=== PATIENT | male | born 1970 | race Caucasian/White ===

== ENCOUNTER 2024-06-26 14:44 | Observation (INO) ==
[2024-06-26] MEDS ORDERED: ONDANSETRON 4 MG/2 ML VIAL IV PRN (15:01)
[2024-06-26 15:38] LABS: Basophils # (Auto) 0.03 K/mcL (0.00-0.30); Basophils % (Auto) 0.5 % (0.0-2.0); Eosinophils # (Auto) 0.04 K/mcL (0.00-0.70); Eosinophils % (Auto) 0.6 % (0.0-7.0); Hematocrit 50.2 % (40.1-51.0); Hemoglobin 16.4 g/dL (13.7-17.5); Lymphocytes # (Auto) 1.96 K/mcL (1.50-4.80); Lymphocytes % (Auto) 29.8 % (15.5-49.0); Mean Cell Volume 86.6 fL (80.0-100.0); Mean Corpuscular HGB Conc 32.7 g/dL (31.0-36.0); Mean Platelet Volume 9.7 fL (8.8-12.5); Monocytes # (Auto) 0.55 K/mcL (0.10-0.90); Monocytes % (Auto) 8.4 % (1.0-12.0); Neutrophils % (Auto) 60.5 % (38.0-78.0); Platelet Count 282 K/mcL (140-440); Red Cell Distribution Width 13.5 % (11.5-14.5); WBC 6.6 K/mcL (4.5-11.0)
[2024-06-26 15:50] LABS: Prothrombin Time 13.1 sec (11.9-14.5)
[2024-06-26] MEDS: ACETAMINOPHEN 1,000 MG/100 ML BAG IV SCH (16:03)
[2024-06-26 16:29] LABS: C-Reactive Protein < 0.05 mg/dL (0.03-0.80)
[2024-06-26] MEDS: PIPERACILLIN SODIUM/TAZOBACTAM 3.375 GM in DEXTROSE 5% IN WATER 50 ML IV ONE (16:35)
[2024-06-26 16:36] LABS: ALT/SGPT 33 U/L (<40); AST/SGOT 30 U/L (<40); Albumin 4.8 gm/dL (3.2-5.2); Albumin/Globulin Ratio 1.6 (1.0-2.3); Alkaline Phosphatase 95 U/L (39-117); Anion Gap 16.3 (8.0-16.0); Bilirubin,Direct < 0.2 mg/dL (0-0.3); Bilirubin,Total 0.5 mg/dL (0.1-1.0); Blood Urea Nitrogen 22 mg/dL (6-20); Calcium 10.5 mg/dL (8.6-10.4); Carbon Dioxide 23 mmol/L (22-30); Chloride 103 mmol/L (96-108); Globulin 3.1 gm/dL (2.2-3.7); Glomerular Filtration Rate 64; Glucose 112 mg/dL (70-105); Lactate Dehydrogenase 194 U/L (135-225); Phosphorous 3.8 mg/dL (2.5-4.5); Potassium 3.9 mmol/L (3.3-5.1); Sodium 142 mmol/L (133-145); Triglycerides 136 mg/dL (<150); Uric Acid 6.1 mg/dL (2.5-8.0)
[2024-06-26] MEDS: DEXTROSE 5%-NS 1,000 ML IV SCH (16:37)
[2024-06-26] MEDS: PANTOPRAZOLE 40 MG VIAL IV SCH (17:18)
[2024-06-27] MEDS: PIPERACILLIN SODIUM/TAZOBACTAM 3.375 GM in DEXTROSE 5% IN WATER 100 ML IV SCH (00:07)
[2024-06-27] MEDS ORDERED: PROPOFOL 200 MG/20 ML VIAL IV ONE (09:13)
[2024-06-27] MEDS ORDERED: KETAMINE 50 MG/ML Syringe IV ONE (09:13)
[2024-06-27] MEDS ORDERED: fentaNYL 100 MCG/2 ML VIAL ONE (09:13)
[2024-06-27] MEDS ORDERED: ROCURONIUM 10 MG/ML ML IV ONE (09:14)
[2024-06-27] MEDS ORDERED: ONDANSETRON 4 MG/2 ML VIAL ONE (09:14)
[2024-06-27] MEDS ORDERED: LIDOCAINE 2% PF 5 ML VIAL ONE (09:14)
[2024-06-27] MEDS ORDERED: DEXAMETHASONE 10 MG/ML VIAL ONE (09:14)
[2024-06-27] MEDS ORDERED: IPRATROPIUM/ALBUTEROL 3 ML AMPUL.NEB NEB PRN ×2 (09:30→10:51)
[2024-06-27] MEDS ORDERED: SCOPOLAMINE 1 PATCH PATCH TOPICAL PRN (09:30)
[2024-06-27] MEDS ORDERED: PHENYLephrine 1 MG/10 ML SYRINGE (ANEST) ONE (10:12)
[2024-06-27] MEDS ORDERED: SUGAMMADEX SODIUM 200 MG/2 ML VIAL IV ONE (10:46)
[2024-06-27] MEDS ORDERED: diphenhydrAMINE 50 MG/ML VIAL IV PRN (10:51)
[2024-06-27] MEDS ORDERED: ONDANSETRON 4 MG/2 ML VIAL IV PRN (10:51)
[2024-06-27] MEDS ORDERED: METHOCARBAMOL 1,000 MG/10 ML VIAL IV PRN (10:51)
[2024-06-27] MEDS ORDERED: LACTATED RINGERS 250 ML IV PRN (10:51)
[2024-06-27] MEDS ORDERED: MEPERIDINE 25 MG/ML VIAL IV PRN (10:51)
[2024-06-27] MEDS ORDERED: fentaNYL 100 MCG/2 ML VIAL IV PRN (10:51)
[2024-06-27] MEDS ORDERED: HYDROmorphone 0.5 MG/0.5 ML SYRINGE IV PRN (10:51)
[2024-06-27] MEDS ORDERED: NALOXONE HCL 0.4 MG/ML VIAL IV PRN (10:51)
[2024-06-27] MEDS: fentaNYL 100 MCG/2 ML VIAL IV PRN ×2 (11:36→13:08)
[2024-06-27] MEDS: LACTATED RINGERS 1,000 ML IV SCH (12:14)
[2024-06-27] MEDS: PREGABALIN 150 MG CAPSULE PO SCH (12:53)
[2024-06-27] MEDS: NORTRIPTYLINE 25 MG CAPSULE PO SCH (20:58)
[2024-06-28 06:06] LABS: Basophils # (Auto) 0.01 K/mcL (0.00-0.30); Basophils % (Auto) 0.1 % (0.0-2.0); Eosinophils # (Auto) 0 K/mcL (0.00-0.70); Eosinophils % (Auto) 0 % (0.0-7.0); Hematocrit 40.9 % (40.1-51.0); Hemoglobin 13.5 g/dL (13.7-17.5); Lymphocytes # (Auto) 1.36 K/mcL (1.50-4.80); Lymphocytes % (Auto) 14.6 % (15.5-49.0); Mean Platelet Volume 9.9 fL (8.8-12.5); Monocytes # (Auto) 0.64 K/mcL (0.10-0.90); Monocytes % (Auto) 6.9 % (1.0-12.0); Neutrophils % (Auto) 78.3 % (38.0-78.0); Platelet Count 233 K/mcL (140-440); Red Cell Distribution Width 13.4 % (11.5-14.5); WBC 9.3 K/mcL (4.5-11.0)
[2024-06-28 06:16] LABS: ALT/SGPT 76 U/L (<40); AST/SGOT 77 U/L (<40); Albumin 3.9 gm/dL (3.2-5.2); Albumin/Globulin Ratio 1.5 (1.0-2.3); Alkaline Phosphatase 72 U/L (39-117); Bilirubin,Direct 0.2 mg/dL (<0.3); Bilirubin,Total 0.6 mg/dL (0.1-1.0); Blood Urea Nitrogen 7 mg/dL (6-20); Carbon Dioxide 23 mmol/L (22-30); Chloride 107 mmol/L (96-108); Globulin 2.6 gm/dL (2.2-3.7); Glomerular Filtration Rate 85; Glucose 120 mg/dL (70-105); Lactate Dehydrogenase 194 U/L (135-225); Phosphorous 2.8 mg/dL (2.5-4.5); Potassium 4.4 mmol/L (3.3-5.1); Sodium 141 mmol/L (133-145); Triglycerides 91 mg/dL (<150); Uric Acid 2.2 mg/dL (2.5-8.0)
[2024-06-28] MEDS: DULoxetine 30 MG CAPSULE PO SCH (08:57)
== END 2024-06-28 14:41 | disposition home or self-care (01) ==
LOC: MEDSUR
PROVIDERS: ADMIT Family Medicine Adult Medicine; ATTEND Family Medicine Adult Medicine